=== PATIENT | female | born 1990 | race Caucasian/White ===

== ENCOUNTER 2017-12-19 16:10 | Emergency (ER) | payer MEDICAID ==
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
[2017-12-19] MEDS ORDERED: NS 1,000 ML IV ONE (16:44)
[2017-12-19 17:03] LABS: PLATELET COUNT 217 10^3/uL (150-400)
[2017-12-19 18:12] VITALS: BP 90/43
== END 2017-12-19 18:43 | disposition home or self-care (01) ==
LOC: CED 16:10
DX: R10.33 Periumbilical pain (principal); F17.200 Nicotine dependence, unspecified, uncomplicated; E86.9 Volume depletion, unspecified; Z90.49 Acquired absence of other specified parts of digestive tract
CPT/HCPCS: 74018-PO; 80048-PO; 81003-PO; 81015-PO; 84703-PO; 85025-PO